=== PATIENT | male | born 1960 | race Caucasian/White ===

== ENCOUNTER 2024-01-01 20:36 | Emergency (ER) | payer BC, SELFPAY ==
[2024-01-01 20:45] VITALS: BP 113/82
[2024-01-01 20:58] LABS: Glucose - Point of Care 178 mg/dl (70-99)
[2024-01-01 21:04] LABS: % Basophils 0.5 % (0-2); % Eosinophils 1.3 % (0-6); % Immature Granulocytes 0.4 % (0-0.5); % Lymphocytes 23.7 % (20.5-51.1); % Monocytes 8.4 % (1.7-9.3); % Neutrophils 65.7 % (42.2-75.2); Absolute Basophils 0.1 10^3/uL (0-0.2); Absolute Eosinophils 0.2 10^3/uL (0-0.7); Absolute Immature Granulocytes 0.1 10^3/uL (0-0.05); Absolute Lymphocytes 2.8 10^3/uL (1.2-3.4); Absolute Neutrophils 7.7 10^3/uL (1.4-6.5); Hemoglobin 12.5 g/dL (13.0-18.0); Mean Corp Hgb Conc. 36.8 g/dL (33.0-37.0); Mean Corpuscular Hgb 30.2 pg (27.0-31.0); Mean Corpuscular Volume 82.1 fL (80.0-94.0); Mean Platelet Volume 8.9 fL (7.4-10.4); Nucleated Red Blood Cells % 0 % (-); Platelet Count 343 10^3/uL (130-400); Red Blood Cell Count 4.14 10^6/uL (4.70-6.10); Red Cell Dist. Width 12.8 % (11.5-14.5); White Blood Cell Count 11.8 10^3/uL (4.8-10.8)
[2024-01-01 21:20] LABS: ALT (SGPT) 23 U/L (0-50); AST (SGOT) 20 U/L (17-59); Albumin 4.3 g/dl (3.5-5.0); Alkaline Phosphatase 83 U/L (38-126); Blood Urea Nitrogen 17 mg/dl (9-20); Calcium 10.3 mg/dl (8.4-10.2); Carbon Dioxide 26 mmol/L (22-30); Chloride 97 mmol/L (98-107); Glucose 188 mg/dl (70-99); Potassium 3.6 mmol/L (3.5-5.1); Sodium 134 mmol/L (135-145); Total Bilirubin 0.8 mg/dl (0.2-1.3); Total Protein 6.7 g/dl (6.3-8.2); eGFR > 60.00
[2024-01-01 21:29] LABS: Troponin I < 0.012 ng/ml
[2024-01-01] MEDS: NSS 1000 IV (23:36)
[2024-01-01 23:42] VITALS: BMI 26.1
[2024-01-01 23:47] LABS: Urine Albumin Negative (Neg - Trace); Urine Bilirubin 1+ (Negative); Urine Character Clear (Clear); Urine Color Yellow; Urine Glucose 1+ (Negative); Urine Ketone Trace (Negative); Urine Leukocyte Negative (Negative); Urine Nitrite Negative (Negative); Urine Occult Blood Negative (Negative); Urine Specific Gravity 1.025 (<1.030); Urine Urobilinogen Negative (Neg - 1+)
[2024-01-02 00:24] LABS: Glucose - Point of Care 178 mg/dl (70-99)
--- NOTE | 2024-01-02 00:46 | ED.GENMED ---
History of Present Illness
General
Chief Complaint: Weakness
Source: patient and spouse
Exam Limitations: none
Time Seen by Provider: 01/01/24 22:37
Nursing documentation reviewed up to this point in time: agreed with
Travel History
Have you had any contact with someone who has COVID-19?: No
Do you have any symptoms of coronavirus? Fever > 100 degrees, chills, cough, shortness of breath, sore throat, loss of taste or smell, muscle aches, or headache?: No
History of Present Illness
History of Present Illness:
Patient diagnosed with new onset diabetes and started on metformin 3 days ago, presents to ED secondary to persistent generalized weakness, which has been ongoing for the past 1 month, along with increased thirst and urinary frequency. Denies fever
or chills. Denies coughing. Denies nausea, vomiting, or diarrhea. Denies abdominal pain. Denies headache.
Review of Systems
Review of Systems
Allergies reviewed?: Yes
Constitutional: Reports no symptoms; Denies fever or chills
EENT: Reports no symptoms
Respiratory: Reports no symptoms
Cardiac: Reports no symptoms
ABD/GI: Reports no symptoms; Denies abdominal pain, nausea, vomiting or diarrhea
: Reports no symptoms
Musculoskeletal: Reports no symptoms
Skin: Reports no symptoms
Neurological: Reports weakness; Denies headache or numbness
Phy Exam
Physical Exam
Physical Exam:
Physical Exam
General: no apparent distress, not acutely ill. afebrile
Head: nc/at. eomi
Neck: supple. no meningeal signs.
Heart: s1/s2 regular rate and rhythm, no murmur. equal radial pulses.
Lungs: no acute respiratory distress. clear bilaterally
Abdomen: normal bowel sounds. not tender.
Neuro: alert and oriented. no focal neurological deficits
Skin: no rash
Psychiatric: well kept. interactive and cooperative
Extremities: no edema. no calf tenderness.
Course
Orders/Labs/Results
Orders:
Orders
01/01/24 20:45
Electrocardiogram (*1) Urgent
Reason for Study: Shortness of Breath
EKG- Treatment ONCE
01/01/24 20:57
Complete Blood Count/With Diff Urgent
Comprehensive Metabolic Panel Urgent
Troponin I Urgent
01/01/24 23:33
0.9% Sodium Chloride 1000 ml [Nss] 1,000 ml IV BOLUS
01/01/24 23:39
Urinalysis Reflex To Culture Urgent
Date Specimen was Collected: 01/01/24
Time Specimen was Collected: 23:35
Abnormal Lab Results
01/01/24 01/01/24 01/02/24
20:57 23:39 00:22
WBC 11.8 H 10^3/uL
(4.8-10.8)
RBC 4.14 L 10^6/uL
(4.70-6.10)
Hgb 12.5 L g/dL
(13.0-18.0)
Hct 34.0 L %
(39.0-52.0)
Abs Immat Gran (auto) 0.1 H 10^3/uL
(0-0.05)
Absolute Neuts (auto) 7.7 H 10^3/uL
(1.4-6.5)
Absolute Monos (auto) 1.0 H 10^3/uL
(0.1-0.6)
Sodium 134 L mmol/L
(135-145)
Chloride 97 L mmol/L
(98-107)
Glucose 188 H mg/dl
(70-99)
Calcium 10.3 H mg/dl
(8.4-10.2)
Urine Ketones Trace A
(Negative)
Urine Bilirubin 1+ A
(Negative)
Urine Glucose 1+ A
(Negative)
POC Glucose 178 H mg/dl 178 H mg/dl
(70-99) (70-99)
01/01/24 20:57
01/01/24 20:57
Vital Signs
Initial and Last Documented VS:
Initial Vital Signs
Temp Pulse Resp Pulse Ox
98.9 F 117 19 96
01/01/24 20:43 01/01/24 20:43 01/01/24 20:43 01/01/24 20:43
Last Documented Vital Signs
Temp Pulse Resp BP Pulse Ox
98.9 F 78 18 99/66 100
01/01/24 20:43 01/02/24 00:55 01/02/24 00:55 01/02/24 00:55 01/02/24 00:55
MDM/Problems Addressed
MDM/Problems Addressed:
Hyperglycemia noted without any acute abnormalities. Patient remains alert, awake, and hemodynamically stable during observation. Had extensive discussion with patient and spouse regarding patient's recently diagnosed diabetic condition, including
need for improved diet along with continual evaluation with his primary care physician. agricultural extension educator information for [facility] provided prior to discharge as well.
*Critical Care Note
Total Time (30-74mins, 75-104mins- exclusive of procedures): Not Applicable
ED Attending Note
-
Portions of this chart may have been created with voice recognition software.� Occasional wrong word or��sound alike� substitutions may have occurred due to the inherent limitations of voice recognition software.
Discharge Plan
Departure
Patient Disposition: Home (Routine Discharge)
Date of Disposition: 01/02/24
Time of Disposition: 00:47
Patient with high blood pressure during this ER visit?: Yes
Condition: Good
Discharge Problem:
Diabetes
Instructions: Guide to Eating When You Have Diabetes, Type 2 Diabetes (DC), Diabetic Meal Planning , Diabetes and diet
Referrals:
Kennedy Hester DO [Family Provider] -
Activity Restrictions/Additional Instructions:
As discussed, please follow-up with your primary care physician for further evaluation and treatment. In addition, you may also call [phone], to schedule an appointment with the visual educator.
Interventions
Interventions:
*Risk Screen - Suicide Last Done: 01/01/24 23:08
*Neglect/Abuse Screening Last Done: 01/01/24 23:08
ED- Fall Risk Assessment Last Done: 01/01/24 23:40
*ED COVID-19 Vaccine History Last Done: 01/01/24 20:44
*Nursing Disposition Last Done: 01/02/24 00:55
ED- Cardiac Assessment Last Done: 01/01/24 23:40
ED- Neurological Assessment Last Done: 01/01/24 23:40
ED- Pulmonary Assessment Last Done: 01/01/24 23:40
Discharge Date and Time
Discharge Date/Time: 01/02/24 00:57
[2024-01-02 00:55] VITALS: BP 99/66
== END 2024-01-02 00:57 | disposition home or self-care (01) ==
LOC: EMR 20:36
PROVIDERS: EMERGENCY PHYSICIAN Emergency Medicine; FAMILY PHYSICIAN Family Medicine
DX: E11.65 Type 2 diabetes mellitus with hyperglycemia (principal); R53.1 Weakness; R35.0 Frequency of micturition; R03.0 Elevated blood-pressure reading, without diagnosis of hypertension; E78.5 Hyperlipidemia, unspecified
CPT/HCPCS: 99283; 80053; 81003; 82962; 84484; 85025; 93005

== ENCOUNTER → 2025-11-06 14:48 | Outpatient (REF) | payer MEDICARE, SELFPAY | LOC: DHSLP 14:48 | PROVIDERS: ATTENDING PHYSICIAN Internal Medicine Critical Care Medicine; FAMILY PHYSICIAN Family Medicine | DX: G47.33 Obstructive sleep apnea (adult) (pediatric) (principal) | CPT/HCPCS: 95800 ==